=== PATIENT | male | born 1990 ===

== ENCOUNTER 2020-04-13 11:35 | Emergency (ER) | payer SELFPAY ==
[2020-04-13 11:47] VITALS: BP 109/73
[2020-04-13 12:55] LABS: Basophils # (Auto) 0.1 K/mm3 (0.0-0.1); Basophils % (Auto) 1.3 % (0.0-1.8); Eosinophils # (Auto) 0.3 K/mm3 (0.0-0.4); Eosinophils % (Auto) 3.1 % (0.0-4.3); Hemoglobin 11.7 gm/dl (11.8-15.2); Lymphocytes # (Auto) 2.4 K/mm3 (1.2-5.4); Lymphocytes % (Auto) 24.7 % (13.4-35.0); Mean Corpuscular HGB Conc 33 % (32-34); Mean Corpuscular Volume 93 fl (84-94); Monocytes # (Auto) 0.3 K/mm3 (0.0-0.8); Monocytes % (Auto) 3.6 % (0.0-7.3); Platelet Count 389 K/mm3 (140-440); Red Blood Count 3.87 M/mm3 (3.65-5.03); Red Cell Distribution Width 15.8 % (13.2-15.2)
[2020-04-13 13:25] LABS: Alanine Aminotransferase 25 units/L (7-56); Albumin 4.2 g/dL (3.9-5); BUN/Creatinine Ratio 13; Blood Urea Nitrogen 14 mg/dL (9-20); Calcium 9.9 mg/dL (8.4-10.2); Hemolysis Index 5
[2020-04-13 13:32] LABS: Bilirubin,Urine NEG (Negative); Blood,Urine NEG (Negative); Color,Urine Colorless (Yellow); Protein,Urine <15 mg/dL mg/dL (Negative); Urobilinogen,Urine < 2.0 mg/dL (<2.0)
[2020-04-13 13:36] LABS: RBC,Urine < 1.0 /HPF (0.0-6.0); WBC,Urine < 1.0 /HPF (0.0-6.0)
[2020-04-13] MEDS ORDERED: SODIUM CHLORIDE 0.9% 1000 ML 1,000 ML IV ONE (13:47)
[2020-04-13] MEDS ORDERED: INSULIN REGULAR, HUMAN 100 UNIT/ML 3ML VIAL IV SCH (14:00)
[2020-04-13] MEDS ORDERED: INSULIN REGULAR, HUMAN 100 UNITS/1 ML ONE (14:00)
--- NOTE | 2020-04-13 15:19 | Emergency Department Report ---
HPI - General Chief Complaint: Hyperglycemia Time Seen by Provider: 04/13/20 13:46 - HPI HPI: This is a 29-year-old male who presents to the emergency department from [place], where the patient is voluntarily inpatient for depression. Patient was found to have elevated blood sugar this morning of 508. He was given 5 units of NovoLog and 26 units of Lantus. The patient states that he was recently treated for pneumonia, which has resolved, and is currently taking Keflex for a left lower leg cellulitis. The patient says that he usually takes 32 units of Lantus in the morning and a variable dose of NovoLog as he does "carb counting." However, the patient says that he usually takes his insulin before eating and at [place] he gets it afterwards. Patient admits to some mild increased thirst and increased urination. He denies any chest pain, fever, nausea, vomiting, abdominal pain, shortness of breath. ED Past Medical Hx - Past Medical History Previous Medical History?: Yes Hx Diabetes: Yes (DM1) Hx Psychiatric Treatment: Yes (depression) - Surgical History Past Surgical History?: No - Social History Smoking Status: Current Every Day Smoker Substance Use Type: None ED Review of Systems ROS: Stated complaint: GENERAL ILLNESS Other details as noted in HPI Comment: All other systems reviewed and negative Constitutional: denies: chills, fever Eyes: denies: eye pain, vision change ENT: denies: ear pain, throat pain Respiratory: denies: cough, shortness of breath Cardiovascular: denies: chest pain, palpitations Endocrine: increased thirst, increased urine Gastrointestinal: denies: abdominal pain, vomiting Genitourinary: frequency. denies: dysuria Musculoskeletal: denies: back pain, arthralgia Skin: denies: rash, lesions Neurological: denies: headache, weakness Physical Exam - Physical Exam Vital Signs: Vital Signs 04/13/20 11:40 Temperature 98.3 F Pulse Rate 85 Respiratory 18 Rate Blood Pressure 109/73 O2 Sat by Pulse 100 Oximetry Physical Exam: GENERAL: The patient is well-developed well-nourished. HENT: Normocephalic. Atraumatic. Patient has moist mucous membranes. EYES: Extraocular motions are intact. NECK: Supple. Trachea is midline. CHEST/LUNGS: Clear to auscultation. There is no respiratory distress noted. HEART/CARDIOVASCULAR: Regular. There is no tachycardia. ABDOMEN: Abdomen is soft, nontender. Patient has normal bowel sounds. SKIN: Skin is warm and dry. Mild erythema to the left lateral distal leg consistent with his cellulitis. NEURO: The patient is awake, alert, and oriented. The patient is cooperative. Normal speech. MUSCULOSKELETAL: There is no tenderness or deformity. There is no limitation range of motion. ED Course Vital Signs 04/13/20 11:40 Temperature 98.3 F Pulse Rate 85 Respiratory 18 Rate Blood Pressure 109/73 O2 Sat by Pulse 100 Oximetry ED Medical Decision Making - Lab Data Result diagrams: 04/13/20 12:07 04/13/20 12:07 - Medical Decision Making This patient presents from [facility], where he is a voluntary admission, with hyperglycemia. His blood sugar is about 520 here with serum glucose. While there is some mild venous acidosis, there are no serum ketones and no elevation in the anion gap, and therefore patient does not appear in diabetic ketoacidosis. He was given a liter of fluid and a dose of IV insulin and his blood sugar came down to about 110. The patient has no other physical or generalized complaints. Vital signs have been reassuring throughout his ED course. The patient will be discharged back to [place]. He has been instructed to follow-up with a PCP and return to the emergency department with any worsening of his symptoms or with any acute distress. Critical Care Time: No Critical care attestation.: If time is entered above; I have spent that time in minutes in the direct care of this critically ill patient, excluding procedure time. ED Disposition Clinical Impression: Hyperglycemia Disposition: DC-01 TO HOME OR SELFCARE Is pt being admited?: No Condition: Stable Instructions: Diabetic Hyperglycemia (ED) Additional Instructions: Try to stay away from foods that are high in sugar, carbohydrates and starches. Take your medications as prescribed. Keep a blood sugar log. Return to the emergency department with any worsening of your symptoms, new or concerning symptoms not addressed during this current emergency department visit, or with any acute distress. Referrals: PRIMARY CARE, [Primary Care Provider] - 2-3 Days Time of Disposition: 15:30
== END 2020-04-13 18:51 | disposition home or self-care (01) ==
LOC: ED 11:35
DX: E10.65 Type 1 diabetes mellitus with hyperglycemia (principal); F32.9 Major depressive disorder, single episode, unspecified; F17.200 Nicotine dependence, unspecified, uncomplicated
CPT/HCPCS: 36415; 80053; 81001; 82010; 82805; 82962; 85025; 96361; 96374; 99284; J7030; J1815